=== PATIENT | female | born 1955 | race Caucasian/White ===

== ENCOUNTER 2020-06-26 18:29 | Emergency (ER) | payer MEDICAID ==
[~2020-06-26] VITALS: Ht 170.2 cm; Wt 104.0 kg
[2020-06-26] MEDS ORDERED: KETOROLAC 30 MG/1 ML ONE (19:12)
--- NOTE | 2020-06-26 19:26 | NUR ---
PIV PLACED, LABS DRAWN AND SENT WITH LAB SLIP. 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 XRAY COMPLETE. PT CONNECTED TO MONITORING. CALL LIGHT IN REACH.
[2020-06-26] MEDS ORDERED: SODIUM CHLORIDE FLUSH 10ML SYR IVF ONE (19:30)
[2020-06-26] MEDS ORDERED: KETOROLAC 30 MG/1 ML IVPush ONE (19:30)
[2020-06-26 19:43] LABS: BASOPHILS % (AUTO) 1 % (0-1); EOSINOPHILS % (AUTO) 3 % (1-7); LYMPHOCYTES % (AUTO) 28 % (22-44); MEAN CORPUSCULAR HEMOGLOBIN 30.5 pg (27.0-34.8); MEAN CORPUSCULAR HGB CONC 33.6 g/dL (32.4-35.8); MONOCYTES % (AUTO) 9 % (2-9); NEUTROPHILS % (AUTO) 60 % (42-75); PLATELET COUNT 299 x10^3/uL (130-400); RED BLOOD COUNT 5.22 x10^6/uL (3.82-5.3); RED CELL DISTRIBUTION WIDTH 12.9 % (9.6-15.2)
[2020-06-26 19:45] LABS: ALBUMIN 3.5 g/dL (3.4-5.0); ANION GAP 4 mmol/L (5-15); CALCIUM 8.9 mg/dL (8.5-10.1); CHLORIDE 107 mmol/L (98-107); CREATININE 0.76 mg/dL (0.55-1.02); MD NO
[2020-06-26 19:48] LABS: TROPONIN I < 0.015 ng/mL (0.000-0.045)
[2020-06-26] MEDS ORDERED: AZITHROMYCIN 500 MG in SODIUM CHLORIDE 0.9% 250 ML IVPB ONE (20:00)
[2020-06-26] MEDS ORDERED: CEFTRIAXONE PMX 1GM/50ML 50 ML IVPB ONE (20:00)
--- NOTE | 2020-06-26 20:01 | NUR ---
MD MORAES TO GIVE ROCEPHIN WITH PT PENICILLIN ALLERGY. WILL MONITOR DURING INFUSION.
[2020-06-26] MEDS ORDERED: CEFTRIAXONE PMX 1GM/50ML 50 ML ONE (20:03)
--- NOTE | 2020-06-26 20:30 | NUR ---
NO ADVERSE REACTION NOTED TO ROCEPHIN. PT GOING TO CT.
[2020-06-26 21:13] VITALS: BP 158/75
--- NOTE | 2020-06-26 21:13 | NUR ---
ALL RESULTS ARE BACK AT THIS TIME. CHART UP FOR RECHECK.
[2020-06-26] MEDS ORDERED: OMNIPAQUE 350 MG/ML, 100ML BOTTLE ONE (23:08)
== END 2020-06-26 22:05 | disposition home or self-care (01) ==
LOC: ED 19:27
DX: J15.9 Unspecified bacterial pneumonia (principal); R07.1 Chest pain on breathing; F17.200 Nicotine dependence, unspecified, uncomplicated
CPT/HCPCS: 36415; 71045; 71275; 80048; 82040; 83880; 84484; 85025; 85379; 93005; 96365; 96367; 96375; 99285; J0456; J0696; J1885; J7050; Q9967